=== PATIENT | female | born 1975 | race African-American/Black ===

== ENCOUNTER 2021-05-15 03:47 | Emergency (ER) | payer OTHER ==
[~2021-05-15] VITALS: Ht 160 cm; Wt 101.6 kg
[2021-05-15] MEDS ORDERED: ASPIRIN 81 MG CHEW TAB PO STA (03:49)
[2021-05-15] MEDS ORDERED: HYDROCODONE/APAP 5MG-325MG TAB PO ONE (04:00)
[2021-05-15 04:15] LABS: BASOPHILS % 0.7 % (0.0-1.0); EOSINOPHILS # (AUTO) 0.2 (0.0-0.4); EOSINOPHILS % 4.1 % (0.0-6.0); HEMATOCRIT 39.6 % (34.2-44.1); HEMOGLOBIN 11.9 g/dL (12.0-16.0); LYMPHOCYTES % 35.6 % (18.0-39.1); MEAN CORPUSCULAR HEMOGLOBIN 24.4 pg (28-32); MEAN CORPUSCULAR HGB CONC 30.1 g/dL (31-35); MEAN CORPUSCULAR VOLUME 81.1 fL (81-99); MONOCYTES # (AUTO) 0.6 (0.2-0.8); MONOCYTES % 10.1 % (4.4-11.3); NEUTROPHILS # (AUTO) 2.7 (2.1-6.9); NEUTROPHILS % 49.3 % (38.7-80.0); PLATELET COUNT 262 x10e3/uL (140-360); RED BLOOD COUNT 4.88 x10e6/uL (3.6-5.1)
[2021-05-15 04:24] LABS: INR 0.94
[2021-05-15 04:25] LABS: PARTIAL THROMBOPLASTIN TIME 24.7 seconds (23.8-35.5)
[2021-05-15 04:34] LABS: ALANINE AMINOTRANSFERASE 12 IU/L (0-55); ALBUMIN/GLOBULIN RATIO 1.1 (0.8-2.0); ALKALINE PHOSPHATASE 76 IU/L (40-150); ANION GAP 13.7 mmol/L (8-16); BLOOD UREA NITROGEN 9 mg/dL (7-26); BUN/CREATININE RATIO 11 (6-25); CALCIUM 8.7 mg/dL (8.4-10.2); CARBON DIOXIDE 24 mmol/L (22-29); CHLORIDE 106 mmol/L (98-107); CREATINE KINASE 159 IU/L (29-168); CREATININE, SERUM 0.82 mg/dL (0.57-1.11); EST GLOMERULAR FILTRATION RATE 75 ML/MIN (60-); GLUCOSE 87 mg/dL (74-118); POTASSIUM 3.7 mmol/L (3.5-5.1); SODIUM 140 mmol/L (136-145)
[2021-05-15] MEDS ORDERED: PEPCID20 MG PO (04:42)
[2021-05-15] MEDS ORDERED: IBUPROFEN600 MG PO (04:42)
[2021-05-15 05:07] VITALS: BP 128/65
== END 2021-05-15 05:19 | disposition home or self-care (01) ==
LOC: ER 03:50
DX: R07.9 Chest pain, unspecified (principal); D64.9 Anemia, unspecified
CPT/HCPCS: 36415; 71045; 80053; 82550; 82553; 83880; 84484; 85025; 85610; 85730; 93005; 99284